=== PATIENT | female | born 1985 | race Two or more races ===

== ENCOUNTER 2022-08-27 12:40 | Inpatient (IN) | payer OTHER ==
[2022-08-27] MEDS ORDERED: BETAMET ACET/BETAMET NA PH 30 MG/5 ML VIAL IM ONE (13:30)
[2022-08-27] MEDS ORDERED: BETAMET ACET/BETAMET NA PH 30 MG/5 ML VIAL ONE (13:45)
[2022-08-27 14:07] LABS: RETICULOCYTES 2.39 % (0.5-1.5)
[2022-08-27 14:08] LABS: BASO % 0.6 % (0-2.0); EOS % 3.4 % (0-4.5); HEMATOCRIT 38.2 % (32.4-45.2); HEMOGLOBIN 12.8 GM/dL (10.7-15.3); INR 0.92 (0.83-1.09); LYMPH % 29.7 % (8-40); MCH 30.1 pg (25.7-33.7); MCHC 33.5 g/dl (32.0-36.0); MEAN CELL VOLUME 89.8 fl (80-96); MONO % 9.5 % (3.8-10.2); NEUT % 56.8 % (42.8-82.8); PLATELET COUNT 223 10^3/uL (134-434); PROTHROMBIN TIME (PATIENT) 10.6 SEC (9.7-13.0); RBC 4.25 M/mm3 (3.60-5.2); RDW 13.7 % (11.6-15.6); WHITE BLOOD COUNT 9.7 K/mm3 (4.0-10.0)
[2022-08-27 14:10] LABS: ACTIVATED PTT 27.9 SECONDS (25.2-36.5)
[2022-08-27] MEDS ORDERED: hydrALAZINE HCL 20 MG/ML VIAL ONE (14:18)
[2022-08-27] MEDS: ELECTROLYTE-148 SOLN 1,000 ML IV SCH (14:20)
[2022-08-27] MEDS ORDERED: hydrALAZINE HCL 20 MG/ML VIAL IVPUSH ONE ×3 (14:20→15:01)
[2022-08-27 14:27] LABS: CALCIUM 9.2 mg/dL (8.5-10.1)
[2022-08-27 14:28] LABS: BLOOD UREA NITROGEN 10.5 mg/dL (7-18); GAMMA GLUTAMYL TRANSPEPTIDASE 15 U/L (5-85)
[2022-08-27 14:30] LABS: URIC ACID 6.2 mg/dL (2.6-7.2)
[2022-08-27 14:31] LABS: CREATININE 0.8 mg/dL (0.55-1.3); SGOT/AST 22 U/L (15-37)
[2022-08-27 14:32] LABS: SGPT/ALT 27 U/L (13-61)
[2022-08-27] MEDS ORDERED: MAGNESIUM SULFATE 20GM/500ML - 20 GM/500 ML INFUS.BAG IVPB SCH (15:00)
[2022-08-27] MEDS ORDERED: MAGNESIUM 4GM/H20 - 4 GM/100 ML IVPB IVPB SCH (15:00)
[2022-08-27] MEDS ORDERED: MAGNESIUM 4GM/H20 - 4 GM/100 ML IVPB IVPB ONE (15:20)
[2022-08-27] MEDS ORDERED: MAGNESIUM SULFATE 20GM/500ML - 20 GM/500 ML INFUS.BAG ONE (15:20)
[2022-08-27] MEDS: MAGNESIUM SULFATE 20GM/500ML - 20 GM/500 ML INFUS.BAG IVPB SCH (16:00)
[2022-08-27 16:37] VITALS: BMI 30.9
[2022-08-27] MEDS ORDERED: ACETAMINOPHEN 325 MG TABLET (FP) ONE (20:03)
[2022-08-27] MEDS: ACETAMINOPHEN 325 MG TABLET (FP) PO PRN (20:05)
[2022-08-27 20:16] LABS: HEMATOCRIT 43.1 % (32.4-45.2); HEMOGLOBIN 14.5 GM/dL (10.7-15.3); MCHC 33.6 g/dl (32.0-36.0); MEAN CELL VOLUME 89.2 fl (80-96); MEAN PLT VOLUME 10.7 fl (7.5-11.1); PLATELET COUNT 257 10^3/uL (134-434); RBC 4.83 M/mm3 (3.60-5.2); RDW 13.8 % (11.6-15.6); RETICULOCYTES 2.34 % (0.5-1.5); WHITE BLOOD COUNT 10.4 K/mm3 (4.0-10.0)
[2022-08-27 20:38] LABS: GAMMA GLUTAMYL TRANSPEPTIDASE 18 U/L (5-85)
[2022-08-27 20:41] LABS: SGOT/AST 26 U/L (15-37); SGPT/ALT 29 U/L (13-61); URIC ACID 6.9 mg/dL (2.6-7.2)
[2022-08-27 20:43] LABS: MAGNESIUM 5.4 mg/dL (1.8-2.4)
[2022-08-27 23:36] LABS: BASO % 0.1 % (0-2.0); HEMATOCRIT 41.1 % (32.4-45.2); HEMOGLOBIN 13.7 GM/dL (10.7-15.3); LYMPH % 10.9 % (8-40); MCH 29.6 pg (25.7-33.7); MCHC 33.4 g/dl (32.0-36.0); MEAN CELL VOLUME 88.6 fl (80-96); MEAN PLT VOLUME 10.9 fl (7.5-11.1); MONO % 1.1 % (3.8-10.2); NEUT % 87.9 % (42.8-82.8); PLATELET COUNT 248 10^3/uL (134-434); RBC 4.64 M/mm3 (3.60-5.2); RDW 13.8 % (11.6-15.6); RETICULOCYTES 2.54 % (0.5-1.5); WHITE BLOOD COUNT 11.5 K/mm3 (4.0-10.0)
[2022-08-27 23:51] LABS: SGPT/ALT 25 U/L (13-61)
[2022-08-27 23:52] LABS: SGOT/AST 25 U/L (15-37)
[2022-08-27 23:53] LABS: GAMMA GLUTAMYL TRANSPEPTIDASE 18 U/L (5-85)
[2022-08-27 23:57] LABS: URIC ACID 7.4 mg/dL (2.6-7.2)
[2022-08-28 00:04] LABS: MAGNESIUM 5.9 mg/dL (1.8-2.4)
[2022-08-28] MEDS ORDERED: AMPICILLIN - 1 GM in SODIUM CHLORIDE 100 ML IVPB SCH (00:15)
[2022-08-28] MEDS ORDERED: MAGNESIUM SULFATE 20GM/500ML - 20 GM/500 ML INFUS.BAG ONE ×2 (00:58→17:02)
[2022-08-28] MEDS: MAGNESIUM SULFATE 20GM/500ML - 20 GM/500 ML INFUS.BAG IVPB SCH ×3 (00:59→17:45)
[2022-08-28] MEDS ORDERED: ACETAMINOPHEN 325 MG TABLET (FP) ONE (02:10)
[2022-08-28] MEDS: ACETAMINOPHEN 325 MG TABLET (FP) PO PRN (02:13)
[2022-08-28 03:38] LABS: HEMATOCRIT 41.7 % (32.4-45.2); HEMOGLOBIN 13.7 GM/dL (10.7-15.3); MCH 29.4 pg (25.7-33.7); MCHC 32.9 g/dl (32.0-36.0); MEAN CELL VOLUME 89.4 fl (80-96); MEAN PLT VOLUME 10.6 fl (7.5-11.1); PLATELET COUNT 258 10^3/uL (134-434); RBC 4.67 M/mm3 (3.60-5.2); RDW 13.9 % (11.6-15.6); RETICULOCYTES 2.11 % (0.5-1.5)
[2022-08-28 03:57] LABS: GAMMA GLUTAMYL TRANSPEPTIDASE 16 U/L (5-85)
[2022-08-28 03:59] LABS: ALBUMIN 2.5 g/dl (3.4-5.0)
[2022-08-28 04:01] LABS: URIC ACID 7.3 mg/dL (2.6-7.2)
[2022-08-28 04:02] LABS: BILIRUBIN,DIRECT 0.1 mg/dL (0.0-0.2)
[2022-08-28 04:03] LABS: BILIRUBIN,TOTAL 0.2 mg/dL (0.2-1); TOT PROT 6.6 g/dl (6.4-8.2)
[2022-08-28 04:05] LABS: MAGNESIUM 6.3 mg/dL (1.8-2.4)
[2022-08-28] MEDS: ELECTROLYTE-148 SOLN 1,000 ML IV SCH ×2 (07:00→16:00)
[2022-08-28 09:07] LABS: BASO % 0.2 % (0-2.0); HEMATOCRIT 40.6 % (32.4-45.2); HEMOGLOBIN 13.5 GM/dL (10.7-15.3); LYMPH % 12.9 % (8-40); MCH 29.9 pg (25.7-33.7); MCHC 33.3 g/dl (32.0-36.0); MEAN PLT VOLUME 11.2 fl (7.5-11.1); MONO % 3.9 % (3.8-10.2); PLATELET COUNT 242 10^3/uL (134-434); RBC 4.51 M/mm3 (3.60-5.2); RDW 13.9 % (11.6-15.6); WHITE BLOOD COUNT 10.6 K/mm3 (4.0-10.0)
[2022-08-28] MEDS ORDERED: BETAMET ACET/BETAMET NA PH 30 MG/5 ML VIAL IM ONE (09:26)
[2022-08-28 09:30] LABS: SGOT/AST 23 U/L (15-37); SGPT/ALT 27 U/L (13-61); URIC ACID 7.4 mg/dL (2.6-7.2)
[2022-08-28 09:31] LABS: MAGNESIUM 5.7 mg/dL (1.8-2.4)
[2022-08-28] MEDS ORDERED: MISOPROSTOL 25 MCG TABLET (COMPOUNDED BY PHARMACY) PV ONE (10:00)
[2022-08-28 12:13] LABS: MAGNESIUM 5.5 mg/dL (1.8-2.4)
[2022-08-28] MEDS ORDERED: OXYTOCIN 30 UNITS in 0.9% NS 30 UNIT/500 ML INFUS.BAG IVPB SCH (15:30)
[2022-08-28] MEDS ORDERED: OXYTOCIN 30 UNITS in 0.9% NS 30 UNIT/500 ML INFUS.BAG IVPB ONE (16:02)
[2022-08-28 18:46] LABS: MAGNESIUM 5.5 mg/dL (1.8-2.4)
[2022-08-28] MEDS ORDERED: AMPICILLIN - 2 GM in SODIUM CHLORIDE 100 ML IVPB ONE (20:15)
[2022-08-28] MEDS ORDERED: AMPICILLIN SODIUM 2 GM VIAL ONE (20:16)
[2022-08-28] MEDS ORDERED: MISOPROSTOL 200 MCG TABLET ONE (22:42)
[2022-08-28] MEDS ORDERED: OXYTOCIN 20 UNITS in 0.9% NS 20 UNIT/1,000 ML INFUS.BAG IV ONE (22:43)
[2022-08-28] MEDS ORDERED: LIDOCAINE HCL 1% PRESERVATIVE FREE - 30ML VIAL ONE (22:43)
[2022-08-28] MEDS ORDERED: AMPICILLIN SODIUM 1 GM VIAL ONE (23:45)
[2022-08-28] MEDS ORDERED: SODIUM CHLORIDE 100 ML IVPB ONE (23:46)
[2022-08-28 23:51] LABS: MAGNESIUM 5.8 mg/dL (1.8-2.4)
[2022-08-29] MEDS ORDERED: FENTANYL/BUPIVACAINE/NS/PF - PCEA - 50 ML DISP.SYRIN EP ONE (00:13)
[2022-08-29] MEDS: AMPICILLIN - 1 GM in SODIUM CHLORIDE 100 ML IVPB SCH ×2 (00:15→20:20)
[2022-08-29] MEDS ORDERED: BUPIVACAINE HCL/PF 0.25% (2.5MG/ML) 10 ML VIAL ONE (00:17)
[2022-08-29] MEDS ORDERED: NALOXONE HCL 0.4 MG/ML VIAL IVPUSH PRN (00:55)
[2022-08-29] MEDS ORDERED: FENTANYL/BUPIVACAINE/NS/PF - PCEA - 50 ML DISP.SYRIN EP SCH ×2 (01:00→01:50)
[2022-08-29] MEDS: ELECTROLYTE-148 SOLN 1,000 ML IV SCH ×2 (01:42→13:44)
[2022-08-29] MEDS ORDERED: OXYTOCIN 20 UNITS in 0.9% NS 20 UNIT/1,000 ML INFUS.BAG IV SCH (03:45)
[2022-08-29] MEDS ORDERED: BISACODYL 10 MG SUPP.RECT RC PRN (03:45)
[2022-08-29] MEDS ORDERED: METHYLERGONOVINE MALEATE 0.2 MG/1 ML AMP IM PRN (03:45)
[2022-08-29] MEDS ORDERED: oxyCODONE HCL 5 MG TABLET PO PRN (03:45)
[2022-08-29] MEDS ORDERED: BENZOCAINE 20% 57 GM BOTTLE TP PRN (03:45)
[2022-08-29] MEDS ORDERED: BENZOCAINE 28 GM HEMORRHOIDAL OINTMENT TP PRN (03:45)
[2022-08-29] MEDS ORDERED: WITCH HAZEL 50% (TUCKS) 40 PAD/JAR PAD TP PRN (03:45)
[2022-08-29] MEDS ORDERED: IBUPROFEN 600 MG TABLET (FP) PO PRN (03:45)
[2022-08-29] MEDS ORDERED: LABETALOL HCL 5 MG/1 ML (100MG/20 ML VIAL) IVPUSH ONE (03:52)
[2022-08-29 04:04] LABS: MAGNESIUM 5.9 mg/dL (1.8-2.4)
[2022-08-29 04:16] LABS: CORD PCO2 36.1 mmHg (30-78); CORD pH 7.338 (7.14-7.44)
[2022-08-29 04:17] LABS: CORD PCO2 59.2 mmHg (30-78); CORD pH 7.239 (7.14-7.44)
[2022-08-29 04:18] LABS: CORD HCO3 24.7 mmHg (20-29)
[2022-08-29] MEDS: PRENATAL VITAMINS W/ FOLIC ACID TABLET (FP) PO SCH (10:00)
[2022-08-29] MEDS ORDERED: LABETALOL HCL 100 MG TABLET (FP) ONE (10:02)
[2022-08-29] MEDS: LABETALOL HCL 200 MG TABLET (FP) PO SCH ×2 (10:09→22:17)
[2022-08-29 11:41] LABS: MAGNESIUM 5.3 mg/dL (1.8-2.4)
[2022-08-29 15:20] LABS: GAMMA GLUTAMYL TRANSPEPTIDASE 14 U/L (5-85)
[2022-08-29] MEDS: ACETAMINOPHEN 325 MG TABLET (FP) PO PRN (16:19)
[2022-08-29] MEDS: MAGNESIUM SULFATE 20GM/500ML - 20 GM/500 ML INFUS.BAG IVPB SCH (20:19)
[2022-08-30 08:10] LABS: BASO % 0.3 % (0-2.0); EOS % 0.1 % (0-4.5); HEMATOCRIT 34.7 % (32.4-45.2); HEMOGLOBIN 11.3 GM/dL (10.7-15.3); LYMPH % 17.5 % (8-40); MCH 29.8 pg (25.7-33.7); MCHC 32.5 g/dl (32.0-36.0); MEAN CELL VOLUME 91.7 fl (80-96); MEAN PLT VOLUME 11.1 fl (7.5-11.1); NEUT % 75.1 % (42.8-82.8); PLATELET COUNT 235 10^3/uL (134-434); RBC 3.79 M/mm3 (3.60-5.2); WHITE BLOOD COUNT 12.8 K/mm3 (4.0-10.0)
[2022-08-30] MEDS: LABETALOL HCL 200 MG TABLET (FP) PO SCH ×3 (08:44→21:39)
[2022-08-30] MEDS: PRENATAL VITAMINS W/ FOLIC ACID TABLET (FP) PO SCH (10:27)
[2022-08-30] MEDS ORDERED: SENNOSIDES/DOCUSATE COMBO (SENNA PLUS) TABLET (UD) PO PRN (22:00)
[2022-08-31] MEDS: LABETALOL HCL 200 MG TABLET (FP) PO SCH ×2 (10:57→21:22)
[2022-08-31] MEDS: PRENATAL VITAMINS W/ FOLIC ACID TABLET (FP) PO SCH (10:57)
[2022-08-31 17:59] VITALS: RESP 18
[2022-09-01] MEDS: PRENATAL VITAMINS W/ FOLIC ACID TABLET (FP) PO SCH (09:14)
[2022-09-01] MEDS: LABETALOL HCL 200 MG TABLET (FP) PO SCH (09:14)
[2022-09-01] MEDS ORDERED: LABETALOL HCL 100 MG TABLET (FP) PO ONE (10:00)
[2022-09-01 15:29] VITALS: BP 142/89; PULSE 89; TEMP 98
[2022-09-01] MEDS ORDERED: LABETALOL HCL 200 MG TABLET (FP) PO SCH (22:00)
== END 2022-09-01 15:40 | disposition home or self-care (01) | DRG 560 ==
LOC: JLDR 12:40 → J3W 08-29 14:05
PROVIDERS: ADMIT Obstetrics & Gynecology; ATTEND Obstetrics & Gynecology
PROC: 10E0XZZ Delivery of Products of Conception, External Approach (ICD-10-PCS; principal; 2022-08-29)
PROC: 0U7C7ZZ Dilation of Cervix, Via Natural or Artificial Opening (ICD-10-PCS; 2022-08-29)
PROC: 3E033VJ Introduction of Other Hormone into Peripheral Vein, Percutaneous Approach (ICD-10-PCS; 2022-08-29)
PROC: 3E0DXGC Introduction of Other Therapeutic Substance into Mouth and Pharynx, External Approach (ICD-10-PCS; 2022-08-29)
DX: O14.14 Severe pre-eclampsia complicating childbirth (principal); O60.14X0 Preterm labor third trimester with preterm delivery third trimester, not applicable or unspecified; O36.5930 Maternal care for other known or suspected poor fetal growth, third trimester, not applicable or unspecified; O69.81X0 Labor and delivery complicated by cord around neck, without compression, not applicable or unspecified; Z3A.35 35 weeks gestation of pregnancy; Z37.0 Single live birth
CPT/HCPCS: 36415; 36600; 59409; 76819-TC; 80048; 80076; 82570; 82803; 82977; 83010; 83735; 84156; 84450; 84460; 84550; 85025; 85027; 85032; 85045; 85610; 85730; 86780; 86850; 86900; 86901; 88307-TC; 96372; C9803-CS; U0003; U0005